=== PATIENT | male | born 1980 | race Caucasian/White ===

== ENCOUNTER 2021-07-20 00:23 | Emergency (ER) | payer OTHER ==
[~2021-07-20] VITALS: Ht 167.6 cm; Wt 65.8 kg
[2021-07-20 02:27] VITALS: BP 129/86
[2021-07-20] MEDS ORDERED: IBUP800T26 PO (02:27)
[2021-07-20] MEDS ORDERED: DOXY-340 PO (02:27)
[2021-07-20] MEDS ORDERED: KETOROLAC TROMETH 60MG/2ML VIAL IM ONE (02:30)
[2021-07-20] MEDS ORDERED: cefTRIAXone SOD 1,000 MG VL IM ONE (02:30)
== END 2021-07-20 02:50 | disposition home or self-care (01) ==
LOC: ER 00:26
DX: L03.116 Cellulitis of left lower limb (principal); L03.115 Cellulitis of right lower limb; R60.0 Localized edema; Z88.2 Allergy status to sulfonamides
CPT/HCPCS: 96372; 99284; J0696; J1885

== ENCOUNTER 2021-07-22 15:47 | Emergency (ER) | payer OTHER ==
[~2021-07-22] VITALS: Ht 167.6 cm; Wt 65.8 kg
[~2021-07-22 15:47] MED LIST: DOXY-340 PO; IBUP800T26 PO
[2021-07-22 18:46] VITALS: BP 133/72
[2021-07-22] MEDS ORDERED: CLIN300C8 PO (18:48)
== END 2021-07-22 18:56 | disposition home or self-care (01) ==
LOC: ER 15:47
DX: L03.116 Cellulitis of left lower limb (principal); Z79.2 Long term (current) use of antibiotics; Z79.1 Long term (current) use of non-steroidal anti-inflammatories (NSAID); Z88.2 Allergy status to sulfonamides

== ENCOUNTER 2021-08-28 05:36 | Emergency (ER) | payer OTHER ==
[~2021-08-28] VITALS: Ht 167.6 cm; Wt 63.5 kg
[~2021-08-28 05:36] MED LIST changes: +CLIN300C8 PO
[2021-08-28 07:32] VITALS: BP 135/61
[2021-08-28 08:10] LABS: Basophils # (auto) 0.1 10 ^3/uL (0-0.2); Eosinophils # (auto) 0.3 10 ^3/uL (0-0.8); Hematocrit 37.2 % (41.0-53.0); Hemoglobin 12.5 g/dL (13.5-17.5); Lymphocytes # (auto) 2.3 10 ^3/uL (0.4-5.4); Lymphocytes % (auto) 36.8 % (10.0-50.0); Mean Corpuscular Hemoglobin 28.3 pg (28.0-32.0); Mean Corpuscular Hgb Conc. 33.5 g/dL (32.0-36.0); Mean Corpuscular Volume 84.4 fL (80.0-100.0); Monocytes # (auto) 0.9 10 ^3/uL (0-1.3); Monocytes % (auto) 14.5 % (0.0-12.0); Neutrophils # (auto) 2.7 10 ^3/uL (1.6-8.6); Neutrophils % (auto) 42.7 % (37.0-80.0); Nucleated Red Blood Cells % 0.1 %; Red Blood Cells 4.41 10^6/uL (4.5-5.90); Red Cell Distribution Width 13.9 % (11.8-14.3); White Blood Cell 6.3 10^3/uL (4.4-10.8)
[2021-08-28 08:27] LABS: Potassium 4.3 mmol/L (3.5-5.1)
[2021-08-28] MEDS ORDERED: LORazepam 0.5 MG TAB PO ONE (08:30)
[2021-08-28 08:36] LABS: Albumin 2.8 g/dL (3.4-5.0); BUN/Creatinine Ratio 30.9; Bilirubin, Total 0.3 mg/dL (0.2-1.0); Calcium 8.4 mg/dL (8.5-10.1); Total Protein 6.3 g/dL (6.4-8.2)
[2021-08-28] MEDS ORDERED: IOHEXOL 300 MG/ML 100ML BOTTLE IJ ONE (10:16)
[2021-08-28] MEDS ORDERED: methylPREDNISolone SOD SUCC 125 MG/2 ML VL IM ONE (11:15)
== END 2021-08-28 13:38 | disposition home or self-care (01) ==
LOC: ER 05:36
DX: M54.2 Cervicalgia (principal); R13.10 Dysphagia, unspecified; F11.20 Opioid dependence, uncomplicated
CPT/HCPCS: 36415; 70491; 80053; 84484; 85025; 93005; 96372; 99285; J2930; Q9967

== ENCOUNTER 2021-10-16 17:40 | Emergency (ER) | payer OTHER, MEDICAID ==
[~2021-10-16] VITALS: Ht 167.6 cm; Wt 65.8 kg
[2021-10-16] MEDS ORDERED: PANTOPRAZOLE 40 MG/10 ML VIAL INJ IV ONE (19:15)
[2021-10-16] MEDS ORDERED: ONDANSETRON HCL 4 MG/2 ML VIAL IV ONE (19:15)
[2021-10-16] MEDS ORDERED: MORPHINE SULFATE 4 MG/ML SYR/VIAL IV ONE (19:15)
[2021-10-16] MEDS ORDERED: SODIUM CHLORIDE 0.9% 500 ML IVB ONE (19:15)
[2021-10-16 20:25] LABS: Basophils # (auto) 0 10 ^3/uL (0-0.2); Basophils % (auto) 0.3 % (0.0-2.0); Eosinophils # (auto) 0.1 10 ^3/uL (0-0.8); Eosinophils % (auto) 0.5 % (0.0-7.0); Hematocrit 43.8 % (41.0-53.0); Hemoglobin 14.7 g/dL (13.5-17.5); Lymphocytes # (auto) 1.2 10 ^3/uL (0.4-5.4); Lymphocytes % (auto) 9.4 % (10.0-50.0); Mean Corpuscular Hemoglobin 28.2 pg (28.0-32.0); Mean Corpuscular Hgb Conc. 33.5 g/dL (32.0-36.0); Mean Corpuscular Volume 84.1 fL (80.0-100.0); Monocytes # (auto) 0.7 10 ^3/uL (0-1.3); Monocytes % (auto) 5.9 % (0.0-12.0); Neutrophils # (auto) 10.3 10 ^3/uL (1.6-8.6); Neutrophils % (auto) 83.9 % (37.0-80.0); Nucleated Red Blood Cells % 0.3 %; Red Blood Cells 5.21 10^6/uL (4.5-5.90); Red Cell Distribution Width 13.9 % (11.8-14.3); White Blood Cell 12.2 10^3/uL (4.4-10.8)
[2021-10-16 23:28] LABS: Calcium 7.3 mg/dL (8.5-10.1); Potassium 3.7 mmol/L (3.5-5.1)
[2021-10-16 23:31] LABS: Albumin 2.6 g/dL (3.4-5.0); BUN/Creatinine Ratio 19.4
[2021-10-16 23:34] LABS: Bilirubin, Total 0.4 mg/dL (0.2-1.0); Total Protein 5.8 g/dL (6.4-8.2)
[2021-10-17] MEDS ORDERED: KETOROLAC TROMETH 30 MG/ML 1ML VIAL IM ONE
[2021-10-17 01:48] LABS: Urine Bacteria NONE SEEN /hpf (None Seen); Urine Blood Negative /uL (Negative); Urine Mucus FEW (None Seen); Urine Specific Gravity 1.027 (1.001-1.035); Urine WBC 22 /hpf (0 - 3)
[2021-10-17] MEDS ORDERED: CIPR-273 PO (04:58)
[2021-10-17 05:21] VITALS: BP 115/79
== END 2021-10-17 05:21 | disposition home or self-care (01) ==
LOC: ER 17:40
DX: R10.13 Epigastric pain (principal); R11.2 Nausea with vomiting, unspecified; F17.210 Nicotine dependence, cigarettes, uncomplicated; Z88.2 Allergy status to sulfonamides
CPT/HCPCS: 36415; 74176; 80053; 81001; 82150; 83690; 84484; 85025; 99285; C9113; J2270; J2405